=== PATIENT | male | born 1940 | race Caucasian/White ===

== ENCOUNTER → 2023-02-23 | Outpatient (CLI) | payer MEDICARE, MEDICAID ==
--- NOTE | 2023-02-23 09:28 | Diagnostic Imaging Report ---
INDICATION: Chronic right knee pain. FINDINGS: Four views of the right knee show advanced degenerative changes of the medial compartment of the right knee with [id number] contact and erosive changes of the opposing bony articular surfaces. There are large osteophytes forming at the medial and lateral articular margins of the patellofemoral joint and in the tibiofemoral joint spaces. 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 Dictated by: Dictated on workstation # [id number]
== END ==
LOC: ORTHO 08:55
PROVIDERS: ATTEND Orthopaedic Surgery
DX: M17.11 Unilateral primary osteoarthritis, right knee (principal)
CPT/HCPCS: 73564; G0463; 99203

== ENCOUNTER → 2023-05-05 | Outpatient (CLI) | payer MEDICARE, MEDICAID | LOC: ORTHO 10:32 | PROVIDERS: ATTEND Orthopaedic Surgery | DX: M17.11 Unilateral primary osteoarthritis, right knee (principal) | CPT/HCPCS: 20610 ==